=== PATIENT | male | born 1995 | race Asian ===

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

== ENCOUNTER 2017-07-12 04:13 | Emergency (ER) | payer OTHER ==
[2017-07-12] MEDS ORDERED: NS 1,000 ML IV ONE ×2 (04:18)
[2017-07-12] MEDS ORDERED: LORazepam 2 MG/ML INJ IVP ONE ×3 (04:18→05:16)
--- NOTE | 2017-07-12 04:22 | EDPHY ---
H & P Source: Patient, Police, EMS - Medical/Surgical History Other PMH: ghassan shoulder dislocations and surgery - Social History Smoking Status: Never smoked <Jose RobertoMiahmariselDaniel - Last Filed: 07/12/17 05:42> <Froylan Cook - Last Filed: 07/13/17 10:48> HPI/ROS: HPI CHIEF COMPLAINT: Polysubstance abuse, cocaine and marijuana HISTORY OF PRESENT ILLNESS: This patient 22-year-old male, he is having any significant medical history presents emergency room at 4 o'clock in the morning by EMS after became acutely agitated and paranoid at home after doing when he states he has a large amount of cocaine over the past week as well as smoking marijuana evening. States marijuana may have feel nauseous and he vomited once. He then became agitated and he called 911. He arrives to the emergency room with EMS and police. Arrival he is somewhat agitated is noted to be tachycardic. However he does answer my questions appropriately in calms down and does follow commands. Patient denies chest pain or shortness of breath. Denies pain anywhere. Past Medical History: Denies significant medical history Past Surgical History: Denies significant surgical history Social History: [employer] student, admits to large amount of cocaine this week, marijuana. Denies alcohol. Family History: Noncontributory. ROS REVIEW OF SYSTEMS: A comprehensive 10 point review of systems is otherwise negative aside from elements mentioned in the history of present illness. Exam Constitutional triage nursing summary reviewed, vital signs reviewed, awake/ alert. Somewhat agitated, tachycardic Eyes normal conjunctivae and sclera, EOMI, PERRLA. HENT normal inspection, atraumatic, moist mucus membranes, no epistaxis, neck supple/ no meningismus, no raccoon eyes. Respiratory clear to auscultation bilaterally, normal breath sounds, no respiratory distress, no wheezing. Cardiovascular tachycardic, regular rhythm, no murmur, no edema, distal pulses normal. Gastrointestinal soft, non-tender, no rebound, no guarding, normal bowel sounds, no distension, no pulsatile mass. Genitourinary no CVA tenderness. Musculoskeletal no midline vertebral tenderness, full range of motion, no calf swelling, no tenderness of extremities, no meningismus, good pulses, neurovascularly intact. Skin pink, warm, & dry, no rash, skin atraumatic. Neurologic awake, alert and oriented x 3, AAOx3, moves all 4 extremities equally, motor intact, sensory intact, CN II-XII intact, normal cerebellar, normal vision, pressured speech, agitated Psychiatric agitated Heme/Lymph/Immune no lymphadenopathy. Differential Diagnosis: Includes but is not limited to in a particular order polysubstance abuse, dehydration, electrolyte disturbance, cocaine toxicity, tachycardia due to stimulant, marijuana intoxication Medical Decision Making: Plan for this patient IV establishment, full ekg monitor, obtain EKG due to tachycardia, 2 mg IV Ativan due to agitation tachycardia and anxiety cocaine induced, electrolytes, re-evaluate. Re-evaluation: 0431: EKG interpretation by me on record in [employer] system. Impression time of EKG 4:29 a.m., sinus tachycardia rate of 130. Intervals are appropriate. I do not Appreciate acute ischemic change. 0528AM: Patient is resting. Heart rate 128. This is after 4 mg IV Ativan. Still getting IV fluids he is on his 2nd L at this time. Still somewhat agitated but much improved. 0700: Patient signed over to Dr. Bhatti at 7:00 a.m. shift change. Patient tachycardic, can be discharged after his tachycardia improves. (Daniel Batres) 1100: I assumed care of this patient at shift change. Patient is awake but has a heart rate of 122 while sitting. 1L IV NS administered. On re-evaluation, patient's HR has returned to normal and he is asymptomatic. He would like to be discharged. He is ambulatory and tolerating food and fluids by mouth without difficulty. (Froylan Cook) Constitutional: Initial Vital Signs Temperature (C) 36.8 C 07/12/17 04:53 Heart Rate 140 H 07/12/17 04:53 Respiratory Rate 20 07/12/17 04:53 Blood Pressure 146/92 H 07/12/17 04:53 O2 Sat (%) 97 07/12/17 04:53 O2 Delivery Mode Room Air Allergies/Adverse Reactions: No Known Allergies Allergy (Unverified 07/12/17 04:53) Home Medications: Medication Instructions Recorded VITAMIN D 08/29/16 - Data Points Laboratory Results: Laboratory Results 07/12/17 04:25 07/12/17 04:25 Medications Given: Discontinued Medications Sodium Chloride (Ns) 1,000 mls @ 0 mls/hr IV EDNOW ONE; Wide Open PRN Reason: Protocol Stop: 07/12/17 04:19 Last Admin: 07/12/17 04:31 Dose: 1,000 mls Sodium Chloride (Ns) 1,000 mls @ 0 mls/hr IV EDNOW ONE; Wide Open PRN Reason: Protocol Stop: 07/12/17 04:19 Last Admin: 07/12/17 04:32 Dose: 1,000 mls Lorazepam (Ativan Injection) 2 mg IVP EDNOW ONE Stop: 07/12/17 04:19 Last Admin: 07/12/17 04:31 Dose: 2 mg Lorazepam (Ativan Injection) 1 mg IVP EDNOW ONE Stop: 07/12/17 05:11 Last Admin: 07/12/17 05:18 Dose: 1 mg Lorazepam (Ativan Injection) 1 mg IVP EDNOW ONE Stop: 07/12/17 05:17 Last Admin: 07/12/17 05:18 Dose: 1 mg Departure <Daniel Batres - Last Filed: 07/12/17 05:42> <Froylan Cook - Last Filed: 07/13/17 10:48> - Departure Disposition: Home, Routine, Self-Care Clinical Impression: Cocaine abuse, Marijuana abuse, Tachycardia, Dehydration Condition: Good Instructions: Cocaine Abuse (ED), Polysubstance Abuse (ED) Additional Instructions: 1. I would highly recommend refraining from doing any drugs. 2. Return to the ED for chest pain, shortness of breath, fever, passing out or other concerns. Referrals: Patient,NotPresent [Unknown] - As per Instructions Stand Alone Forms: School Excuse Report Scribed for: Froylan Cook Report Scribed by: Jaki Houston Date of Report: 07/12/17 Time of Report: 11:04 <Froylan Cook - Last Filed: 07/13/17 10:48>
[2017-07-12 04:36] LABS: % IMMATURE GRANULYOCYTES 0.3 % (0.0-1.1); ABSOLUTE IMMATURE GRANULOCYTES 0.04 10^3/uL (0.00-0.10); ADD DIFF? NO; ADD MORPH? NO; ADD SCAN? NO; ATYPICAL LYMPHOCYTE FLAG 20 (0-99); FRAGMENT RBC FLAG 0 (0-99); HEMATOCRIT 46.3 % (40.0-51.0); HEMOGLOBIN 16.4 g/dL (13.7-17.5); LEFT SHIFT FLG 0 (0-99); LIPEMIA HEMOLYSIS FLAG 90 (0-99); MEAN CELL HEMOGLOBIN 30.6 pg (27.9-34.1); MEAN CELL HEMOGLOBIN CONCENTR. 35.4 g/dL (32.4-36.7); MEAN CELL VOLUME 86.4 fL (81.5-99.8); MEAN PLATELET VOLUME 10.2 fL (8.7-11.7); PLATELET CLUMPS FLAG 0 (0-99); PLATELET COUNT 312 10^3/uL (150-400); RED BLOOD CELL COUNT 5.36 10^6/uL (4.40-6.38); RED CELL DISTRIBUTION WIDTH 12.4 % (11.5-15.2)
[2017-07-12 04:56] LABS: ANION GAP 20 mEq/L (8-16); CALCIUM 9.8 mg/dL (8.5-10.4); CARBON DIOXIDE 19 mEq/l (22-31); CHLORIDE 104 mEq/L (97-110); ETHANOL SERUM < 10 mg/dL (0-10); GLOMERULAR FILTRATION RATE > 60; GLUCOSE 108 mg/dL (70-100); SODIUM 143 mEq/L (134-144)
[2017-07-12 05:12] LABS: CK-MB INTERPRETATION NEGATIVE (NEGATIVE); CREATINE KINASE-MB FRACTION 1.99 ng/mL (0.00-3.19)
--- NOTE | 2017-07-12 05:17 | CPEKG ---
Heart Rate: 130 RR Interval: 462 P-R Interval: 144 QRSD Interval: 82 QT Interval: 304 QTC Interval: 447 P [place]: 54 QRS [place]: 66 T Wave [place]: -7 EKG Severity - BORDERLINE ECG - EKG Impression: SINUS TACHYCARDIA EKG Impression: BORDERLINE T ABNORMALITIES, INFERIOR LEADS Electronically Signed By: Daniel Batres 12-Jul-2017 07:24:41
[2017-07-12 05:47] LABS: COLOR YELLOW; LEUKOCYTE ESTERASE,URINE NEGATIVE (NEGATIVE); NITRITE,URINE NEGATIVE (NEGATIVE)
[2017-07-12 05:50] LABS: MUCUS TRACE /lpf (NONE-1+)
[2017-07-12 05:52] LABS: RBC,URINE NONE SEEN /hpf (0-3); WBC,URINE NONE SEEN /hpf (0-3)
--- NOTE | 2017-07-12 09:26 | ASMTCMCOM ---
CM Note CM Note Notes: Pt in FED from [facility]. Next of kin, son Nam lives in [place]. When CM entered the room Pt was alone and sleeping soundly. CM to return when pt. wakes. Date Signed: 07/12/2017 09:26 AM Electronically Signed By:Jayden Pacheco LCSW
--- NOTE | 2017-07-12 09:31 | ASMTCMCOM ---
CM Note CM Note Notes: PLEASE DISREGARD PREVIOS NOTEINCORRECT PT FILE ! Date Signed: 07/12/2017 09:31 AM Electronically Signed By:Jayden Pacheco LCSW
[2017-07-12 09:59] VITALS: RESP 18
[2017-07-12 11:02] VITALS: BP 118/78; O2SAT 98
[2017-07-12 11:34] VITALS: PULSE 105; TEMP 98.4
== END 2017-07-12 11:38 | disposition home or self-care (01) ==
LOC: EDUNIT#
DX: R00.0 Tachycardia, unspecified (principal); F14.10 Cocaine abuse, uncomplicated; F12.10 Cannabis abuse, uncomplicated; E86.0 Dehydration; E86.9 Volume depletion, unspecified
CPT/HCPCS: 80305; 96374; G0480; J2060